=== PATIENT | male | born 1965 | race Caucasian/White ===

== ENCOUNTER → 2023-10-18 | Outpatient (CLI) | payer OTHER, SELFPAY ==
[2023-10-18 12:56] LABS: Anion Gap 6 (5-15); BUN 17 mg/dL (7-18); BUN/Creat Ratio 13.7 RATIO (10-20); Chloride 107 mmol/L (98-107); Cholesterol 226 mg/dL (200); Creatinine, Serum 1.24 mg/dL (0.70-1.30); EST Glomerular Filtration Rate 64 mL/min (>60); Est Glom Filt Rate - Afr Amer 77 mL/min (>60); Glucose 93 mg/dL (74-106); High Density Lipoprotein 38 mg/dL; PSA,Total - Annual Screen 0.81 ng/mL (0.00-4.00); Potassium 4.4 mmol/L (3.5-5.1); Sodium Level 141 mmol/L (136-145); Triglycerides 194 mg/dL; Very Low Density Lipoprotein 39 mg/dL (5-40)
== END | disposition home or self-care (01) ==
LOC: MFPLAB 09:25
PROVIDERS: PCP Family Medicine; Visit Provider Family Medicine
DX: Z00.00 Encounter for general adult medical examination without abnormal findings (principal)
CPT/HCPCS: 36415; 80048; 80061; 84153; G0103

== ENCOUNTER → 2023-10-30 | Outpatient (CLI) | payer OTHER, SELFPAY ==
--- NOTE | 2023-10-30 16:58 | US_ITS ---
STUDY: SCROTUM ULTRASOUND REASON FOR EXAM: Male, 58 years old. SCROTAL MASS TECHNIQUE: Ultrasound evaluation of the scrotum was performed with color Doppler and static solis-scale imaging. COMPARISON: None. FINDINGS: RIGHT TESTICLE INTRATESTICULAR: There is a normal size of the right testicle. The right testicle measures 4.2 x 2.5 x 1.9 cm. There is a homogenous echotexture. There is normal arterial and normal venous vascularity. There is no demonstrated right testicular mass or cyst. EXTRATESTICULAR: The epididymis is normal in size. The epididymis head measures 1.1 x 1.1 x 0.7 cm. There is normal vascularity of the epididymis. There is a well-defined cystic structure within the epididymis, without internal echoes, consistent with an epididymal cyst. There is a small hydrocele. There is no demonstrated varicocele. There is no demonstrated extratesticular mass or cyst. LEFT TESTICLE INTRATESTICULAR: There is a normal size of the left testicle. The left testicle measures 4.0 x 3.1 x 2.2 cm. There is a homogenous echotexture. There is normal arterial and normal venous vascularity. Dilated rete testis. EXTRATESTICULAR: The epididymis is normal in size. The epididymis head measures 2.7 x 2.6 x 2.5 cm. There is normal vascularity of the epididymis. There is a 2.370 well-defined cystic structure within the epididymis, without internal echoes, consistent with an epididymal cyst, corresponding to the palpable abnormality.. There is a small hydrocele. There are prominent extratesticular veins consistent with a varicocele. There is no demonstrated extratesticular mass or cyst. US/Testicular with Arterial Flow IMPRESSION: Normal bilateral testicles. 2.3 cm left epididymal cyst corresponding to the palpable abnormality. Electronically Signed: Alber Bishop MD at 18:08 EDT ,
== END | disposition home or self-care (01) ==
LOC: US 16:57
PROVIDERS: PCP Family Medicine; Referring Provider Family Medicine; Visit Provider Family Medicine
DX: N50.89 Other specified disorders of the male genital organs (principal)
CPT/HCPCS: 76870; 93976

== ENCOUNTER 2023-12-27 06:57 | Day surgery (SDC) | payer OTHER, SELFPAY ==
[2023-12-27 07:13] VITALS: BP 153/102; PULSE 72; RESP 16; TEMP 36.6; O2SAT 99; BMI 27.0
--- NOTE | 2023-12-27 07:14 | PRE.ANES_ITS ---
ASA Classification* ASA Classification ASA Classification: 2 Assessment & Plan Anesthesia* Anesthesia Assessment Anesthesia Assessment: Discussed sedation and/or anesthesia options, risks, benefits, and alternatives with patient/parents/legal guardian/POA. Questions invited. The patient/parents/legal guardian/POA seems to understand and agrees to proceed with anesthesia plan. Reviewed the physical assessment, medical history, allergy history and patient home medications list prior to surgery/procedure/anesthetic and documented any changes. Performed airway and anesthesia risk assessments. 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 When Was Last Pacemaker Check QUESTION #4 FULL TEXT: You/Your Family Experience fever (hyperthermia) with Anesthesia Last Oral Intake Last Oral intake: Last Oral Intake NPO since Meds taken in AM with sips of water? 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 Female No 12/24/23 11:57 HX of Motion Sickness Yes 12/24/23 11:57 HX of N/V After Surgery No 12/24/23 11:57 Non-Smoker Yes 12/24/23 11:57 Duration of Surgery greater No 12/24/23 11:57 than 60 minutes Number of Risk Factors 2 12/24/23 11:57 PONV Score Moderate Risk 12/24/23 11:57 Height & Weight Height & Weight: Anesthesia: Height & Weight Height 5 ft 11 in 12/23/23 11:47 Respiratory Assessment Respiratory Assessment - garnett machine operator: Respiratory Tract Infection Hx - garnett machine operator Hx Respiratory Tract Infection No 12/24/23 11:57 STOP Sleep Apnea STOP Sleep Apnea - garnett machine operator: STOP Sleep Apnea - garnett machine operator Hx Hypertension No 12/24/23 11:57 Hx Sleep Apnea No 12/24/23 11:57 CPAP BIPAP Do you snore loudly (louder Yes 12/24/23 11:57 than talking or can be heard Do you often feel tired/ No 12/24/23 11:57 fatigued/ sleepy during daytime? Has anyone observed you stop No 12/24/23 11:57 breathing during sleep? STOP Results Negative 12/24/23 11:57 QUESTION #5 FULL TEXT : Do you snore loudly (louder than talking or can be heard through closed doors)? 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 Specify any problems Hx of Preganancy in last 3 N/A 12/24/23 11:57 Months Nurse Filling Out Transfusion DSCHRIBER 12/24/23 11:57 & Questions: Date: 12/24/23 12/24/23 11:57 Time: 11:59 12/24/23 11:57 Patient unable to answer at this time (ie. confused, unrespo /Reproduction History /Reproductive History - garnett machine operator: /Reproductive Hx- garnett machine operator Hx Now No 12/24/23 11:57 Gestational Age (in weeks): EDC: Hx Hx Para Hx Section SAB No 12/24/23 11:57 Active Medications Active Medications: Current Medications Generic Name Dose Route Start Last Admin Trade Name Freq PRN Reason Stop Dose Admin Lactated Ringer's 1,000 mls @ 15 mls/hr 12/27/23 07:15 IV .Q48H MANINDER PFSH Medical History Wears glasses Migraine headache Heartburn Non-smoker History of anal fissures Scrotal mass Hyperlipidemia Home Medications ?Medication ?Instructions ?Recorded ?Last Taken ?Type rosuvastatin 5 mg tablet 5 mg PO DAILY 12/23/23 Unknown History Allergy/AdvReac Type Severity Reaction Status Date / Time No Known Allergies Allergy Verified 12/27/23 07:13 Family History Father Heart disease Diabetes Brother Heart disease Diabetes Surgical History Hx of vasectomy Social History household members: spouse current occupational status: employed Smoking Status: Never smoker alcohol intake: never substance use type: does not use Review of Systems (Anesthesia) ROS Narrative System reviewed and no additional complaints, except as documented.
[2023-12-27] MEDS: Lactated Ringers 1,000 ML 15 ML IV (07:23)
--- NOTE | 2023-12-27 07:30 | HP.PCM_ITS ---
HPI - General HPI Narrative ALLEN DUNCAN, is a 58 M who presentsFor screening colonoscopy. He has never had a colonoscopy in the past. He denies abdominal pain or blood in stool. He has no family history of colon cancer. He is on no blood thinners. [facility] Medical History Wears glasses Migraine headache Heartburn Non-smoker History of anal fissures Scrotal mass Hyperlipidemia Home Medications ?Medication ?Instructions ?Recorded ?Last Taken ?Type rosuvastatin 5 mg tablet 5 mg PO DAILY 12/23/23 Unknown History Allergy/AdvReac Type Severity Reaction Status Date / Time No Known Allergies Allergy Verified 12/27/23 07:13 Family History Father Heart disease Diabetes Brother Heart disease Diabetes Surgical History Hx of vasectomy Social History household members: spouse current occupational status: employed Smoking Status: Never smoker alcohol intake: never substance use type: does not use Past Medical/Surgical History Planned Operation Planned Operative Procedure(s): CSCOPE OA Previous Hospitalizations/Surgeries HX Hospitalizations: No Any Problems With Anesthesia: No You/Your Family Experience Fever (Hyperthermia) With Anes: No Cholinesterase deficiency: No Cardiovascular Hx Hypertension: No Respiratory Hx Sleep Apnea: No Hx Respiratory Tract Infection/Cold (presently): No Do You Snore Loudly (louder than talking or can be heard): Yes Do You Often Feel Tired/ Fatigued/ Sleepy Dring Daytime?: No Has Anyone Observed You Stop Breathing During Sleep?: No Result (for STOP score): Negative Smoking Status: Never smoker Neurological Does patient have nerve stimulator: No Reproduction : No Miscellaneous Recent Exposure to Contagious Disease: No Allergies No Known Allergies Allergy (Verified 12/27/23 07:13) Discharge Is Pt Admitted From a Half-Way, or a Nursing Home: No After D/C, Where Do you Plan to Go: Return Home Vital Signs Vital Signs Vital Signs: 12/27/23 07:13 12/27/23 07:13 Temperature 98 F Temperature Source Temporal Pulse Rate 72 Respiratory Rate 16 Respiratory Pattern Normal Blood Pressure 153/102 H Blood Pressure Mean 119 Blood Pressure Source Monitor Blood Pressure Position Sitting Blood Pressure Location Left Arm Pulse Ox 99 Oxygen Delivery Method Room Air Weight Weight: 194 lb Body Mass Index (BMI) 27.0 Physical Exam Const alert and oriented x3 HEENT normocephalic Eyes PERRL Resp normal respiratory effort and normal air movement Cardio regular rate and regular rhythm GI soft to palpation, non-tender and non-distended Extremity normal to inspection Assessment & Plan Assessment/Plan (1) Encounter for screening for malignant neoplasm of colon: PLAN: I explained endoscopy in detail to the patient. I explained the risks including but not limited to stroke or heart attack with anesthesia, perforation of the GI tract, bleeding, infection. I explained that any of these could necessitate further emergency surgery. The patient understands and all questions were answered sufficiently. The patient wishes to proceed with procedure. Clarence Westbrook MD Pager: [facility] [address] [place] [address], [address] [place] [address] Office: Surgery Risks - Colonoscopy Risks Include but are not Limited To: Risks include but are not limited to: Bleeding, perforation requiring further surgery, inability to complete colonoscopy requiring barium enema.
--- NOTE | 2023-12-27 08:17 | OP.COLON_ITS ---
Patient Name: Vinny Mckenna Procedure Date: 12/27/2023 7:51 AM Date of : 1965 Age: 58 Procedure: Colonoscopy Indications: Screening for colorectal malignant neoplasm Providers: Clarence Westbrook MD Medicines: Propofol per Anesthesia Patient Profile: This is a 58 year old male. Refer to note in patient chart for documentation of history and physical. Last Colonoscopy: none. The patient's first colonoscopy is today. Complications: No immediate complications. Procedure: Pre-Anesthesia Assessment: - Prior to the procedure, a History and Physical was performed, and patient medications and allergies were reviewed. The patient's tolerance of previous anesthesia was also reviewed. The risks and benefits of the procedure and the sedation options and risks were discussed with the patient. All questions were answered, and informed consent was obtained. Prior Anticoagulants: The patient has taken no anticoagulant or antiplatelet agents. After reviewing the risks and benefits, the patient was deemed in satisfactory condition to undergo the procedure. After I obtained informed consent, the scope was passed under direct vision. Throughout the procedure, the patient's blood pressure, pulse, and oxygen saturations were monitored continuously. The Colonoscope was introduced through the anus and advanced to the cecum, identified by appendiceal orifice and ileocecal valve. The colonoscopy was performed without difficulty. The patient tolerated the procedure well. The quality of the bowel preparation was good. The ileocecal valve, appendiceal orifice, and rectum were photographed. Scope In: 8:01:57 AM Scope Withdrawal Time 0 hours 6 minutes 11 seconds Scope Out: 8:14:27 AM Total Procedure Duration Time 0 hours 12 minutes 30 seconds Findings: The entire examined colon appeared normal on direct and retroflexion views. Impression: - The entire examined colon is normal on direct and retroflexion views. - No specimens collected. Recommendation: - Discharge patient to home. - Resume previous diet. - Continue present medications. - Repeat colonoscopy in 10 years for screening purposes. Procedure Code(s): --- Professional --- 27983, Colonoscopy, flexible; diagnostic, including collection of specimen(s) by brushing or washing, when performed (separate procedure) Diagnosis Code(s): --- Professional --- Z12.11, Encounter for screening for malignant neoplasm of colon CPT copyright 2021 [employer]. All rights reserved. The codes documented in this report are preliminary and upon digital strategist senior manager review may be revised to meet current compliance requirements. Clarence Westbrook MD 12/27/2023 8:16:50 AM This report has been signed electronically. Number of Addenda: 0 Note Initiated On: 12/27/2023 7:51 AM
--- NOTE | 2023-12-27 08:17 | OP.CCLET_ITS ---
12/27/2023 Roosevelt Mejia MD [address] [place] [address] Re : Colonoscopy procedure for Vinny Mckenna Dear Dr. Mejia This procedure was performed on Wednesday, December 27, 2023. My impressions and recommendations are as follows: Impressions : - The entire examined colon is normal on direct and retroflexion views. - No specimens collected. Recommendations : - Discharge patient to home. - Resume previous diet. - Continue present medications. - Repeat colonoscopy in 10 years for screening purposes. My findings are described in the full procedure note, which is enclosed. If I can be of further assistance, please feel free to contact me at Doctor phone number(s): , Work: . Sincerely, Clarence Westbrook MD 12/27/2023 8:16:50 AM This report has been signed electronically.
[2023-12-27 08:20] VITALS: BP 122/83; BP 135/98; BP 153/99; PULSE 68; PULSE 69; RESP 16; RESP 20; TEMP 36.6; O2SAT 97
--- NOTE | 2023-12-27 08:20 | PCM.POST.ANE ---
Anesthesia: Postop Eval I Current Vital Signs Temperature: 97.9 F Pulse Rate: 69 Blood Pressure: 135/98 Respiratory Rate: 20 Pulse Ox: 97 Assessment Airway patent: Yes Spontaneous unlabored respirations: Yes nausea: No Vomiting: No Anesthesia Complication: No Fluid Hydration Crystalloid volume administer (ml): 500 Total IV fluid infused: 500 Progress Note Anesthesia document: Postop Eval 1 completed: Yes
[2023-12-27 08:25] VITALS: BP 125/86; BP 153/99; PULSE 67; RESP 16; O2SAT 97
[2023-12-27 08:30] VITALS: BP 138/100; BP 153/99; PULSE 64; RESP 16; O2SAT 97
[2023-12-27 08:35] VITALS: BP 148/93; BP 153/99; PULSE 61; RESP 16; TEMP 36.7; O2SAT 97
--- NOTE | 2023-12-27 08:41 | POSTOPAN2_ITS ---
Anesthesia Postop Eval I Sum Postop Eval Completion status Anesthesia document: Postop Eval 1 completed: Yes Anesthesia Postop Eval I Summary Anesthesia Postop Eval I Summary: Anesthesia Postop Eval I: Assessment Summary Airway patent Yes 12/27/23 08:20 VETERINARY [email or web address] Spontaneous unlabored Yes 12/27/23 08:20 VETERINARY NURSE.CSIR respirations Mental status nausea No 12/27/23 08:20 VETERINARY NURSE.CSIR Vomiting No 12/27/23 08:20 VETERINARY NURSE.CSIR Anesthesia Postop Eval I: Fluid Summary Crystalloid volume administer 500 12/27/23 08:20 VETERINARY NURSE.CSIR (ml) Colloids volume administered ( ml) Blood Product volume administered (ml) Total IV fluid infused 500 12/27/23 08:20 VETERINARY NURSE.CSIR Anesthesia Postop Eval I: Summary Notes Anesthesia Complication No 12/27/23 08:20 VETERINARY NURSE.CSIR Anesthesia Complication Comment: Post-operative progress note Anesthesia: Postop Eval II Evaluation Mental status: Awake and Calm Pain Level: 0 nausea: No Vomiting: No Complications Anesthesia Complication: No
--- NOTE | 2023-12-27 08:41 | PCM.POSTANE2 ---
Anesthesia Postop Eval I Sum Postop Eval Completion status Anesthesia document: Postop Eval 1 completed: Yes Anesthesia Postop Eval I Summary Anesthesia Postop Eval I Summary: Anesthesia Postop Eval I: Assessment Summary Airway patent Yes 12/27/23 08:20 CAKE PUNCHER.CSIR Spontaneous unlabored Yes 12/27/23 08:20 CAKE PUNCHER.CSIR respirations Mental status nausea No 12/27/23 08:20 CAKE PUNCHER.CSIR Vomiting No 12/27/23 08:20 CAKE PUNCHER.CSIR Anesthesia Postop Eval I: Fluid Summary Crystalloid volume administer 500 12/27/23 08:20 CAKE PUNCHER.CSIR (ml) Colloids volume administered ( ml) Blood Product volume administered (ml) Total IV fluid infused 500 12/27/23 08:20 CAKE PUNCHER.CSIR Anesthesia Postop Eval I: Summary Notes Anesthesia Complication No 12/27/23 08:20 CAKE PUNCHER.CSIR Anesthesia Complication Comment: Post-operative progress note Anesthesia: Postop Eval II Evaluation Mental status: Awake and Calm Pain Level: 0 nausea: No Vomiting: No Complications Anesthesia Complication: No
[2023-12-27 08:46] VITALS: BP 153/99
== END 2023-12-27 09:10 | disposition home or self-care (01) ==
LOC: EN 06:57 → AC 06:58
PROVIDERS: PCP Family Medicine; Referring Provider Family Medicine; Visit Provider Surgery
PROC: 0DJD8ZZ Inspection of Lower Intestinal Tract, Via Natural or Artificial Opening Endoscopic (ICD-10-PCS; CPT 45378; principal; 2023-12-27 07:55)
DX: Z12.11 Encounter for screening for malignant neoplasm of colon (principal); E78.5 Hyperlipidemia, unspecified; Z79.899 Other long term (current) drug therapy; Z98.52 Vasectomy status
CPT/HCPCS: 45378; J7120; J2405

== ENCOUNTER → 2024-02-28 | Outpatient (CLI) | payer OTHER, SELFPAY ==
[2024-02-28 13:19] LABS: Cholesterol 172 mg/dL (200); High Density Lipoprotein 42 mg/dL; Triglycerides 148 mg/dL; Very Low Density Lipoprotein 30 mg/dL (5-40)
== END | disposition home or self-care (01) ==
PROVIDERS: PCP Family Medicine; Referring Provider Family Medicine; Visit Provider Family Medicine
DX: E78.5 Hyperlipidemia, unspecified (principal)
CPT/HCPCS: 36415; 80061